=== PATIENT | male | born 1955 | race Caucasian/White ===

== ENCOUNTER 2017-04-11 10:59 | Emergency (ER) | payer BC, MEDICARE ==
[~2017-04-11] VITALS: Ht 177.8 cm; Wt 79.5 kg
[2017-04-11] MEDS ORDERED: TRAZ50TA11 (11:13)
[2017-04-11] MEDS ORDERED: RANI150T (11:13)
[2017-04-11] MEDS ORDERED: AMLO5TAB2 (11:13)
[2017-04-11] MEDS ORDERED: MELO15TA4 (11:13)
[2017-04-11] MEDS ORDERED: HYDR-3363 (11:13)
[2017-04-11] MEDS ORDERED: HYDR-3719 (11:13)
--- NOTE | 2017-04-11 11:48 | REP ---
RIGHT FIRST DIGIT: Three views of the right first digit are performed. There is amputation of the tip of the first digit as well as of the distal end of the first distal phalanx. There are tiny adjacent radiopaque foreign bodies in the soft tissues as well as a small linear osseous fragment. Signed by Steve Valdez MD 04/11/2017 02:23 P
[2017-04-11] MEDS: LIDOCAINE 2% MDV 20 ML VIAL SC ONE (12:00)
[2017-04-11] MEDS ORDERED: PERC5TAB12 PO (12:53)
[2017-04-11] MEDS ORDERED: KEFL500C17 PO (12:53)
--- NOTE | 2017-04-11 13:09 | ER ---
DATE OF CONSULTATION: 04/11/2017 CHIEF COMPLAINT: Right thumb partial amputation using some sort of a grinding wheel. HISTORY: This is a 61-year-old gentleman who is disabled right now, left hand dominant, who injured his right thumb when he got it caught between the grinding wheel and a pipe and he amputated the end of his thumb through about the mid portion of his distal phalanx in terms of the soft tissue and there is exposed bone. Up to date on tetanus. Antibiotics are being given. He denies any other injury. His medications at home include hydrocodone, amlodipine, Zantac, trazodone, and meloxicam. He has no known drug allergies. PAST MEDICAL HISTORY: Notable for previous appendix surgery, prostate surgery, previous history of hypertension, gastrointestinal disorders including reflux. He has history of back pain. He denies any history of psychiatric problems. Up to date on immunizations he reports and up to date on tetanus. PHYSICAL EXAMINATION: He is alert, oriented, in no acute distress. HEENT: Extraocular muscles intact. He has regular rate and rhythm. No irritability to range of motion of his neck. He has nonlabored breathing. He has intact pulses. Abdomen appears benign. He has isolated injury to his right thumb where he has an oblique type soft tissue amputation that starts on the palmar side close to the flexion crease at the IP joint and extends distally and dorsally out through the proximal nail. There is exposed distal phalanx that protrudes out. It is an oblique, somewhat grossly contaminated and very irregular wound that one would expect from a grinding wheel. There is mild bleeding present. He brought in a piece of macerated tissue from the grinding wheel and his family member indicated there is still more in the wheel. X-rays were reviewed and they demonstrate a partial amputation of his distal phalanx and significant soft tissue loss involving mostly the palmar surface of his thumb and exiting out through his nail and the nail is avulsed. IMPRESSION: Severe injury to his right thumb. I explained to he and his family members the options and I have explained that the only reasonable thing to do is to try to get soft tissue coverage over the end of the bone. She wondered if there would be any role to attach this macerated piece of tissue and I explained that that would not typically be successful and is not something we would advise. The tissue is nonviable and is extremely macerated. I explained the goal is to get good soft tissue coverage over the bone to allow healing of the soft tissues and to try to remove the nail. He wished to go ahead with this. He understood the nature of this and the risks of bleeding, infection, damage to nerves and vessels, persistent pain, sensitivity, problems with recurrent nail growth, need for further surgery down the road, cold intolerance among others. Under sterile conditions, I injected some 1% plain lidocaine in the proximal palm. I prepped and draped the hand in the usual sterile fashion. Then, used a small dissecting scissors to dissect around the exposed portion of the distal phalanx. I then used a rongeur to gradually nibble this back so that I removed some of the bone to allow for soft tissue coverage. He was missing much of the skin on the palmar side of the thumb, but this I think will gradually heal in. I then elevated the skin above the nail matrix, made a small incision on the corners of either side, elevated this up, and used a rongeur to remove the nail matrix. Once enough of the bone had been removed that I could bring soft tissue around, I was able to proceed with that. There was still a flap of tissue along the ulnar side of the distal thumb that I was able to bring over the end and then I used #4-0 nylon suture and a total of 4 stitches to bring the soft tissue over the bone. I had irrigated multiple times. The soft tissue appeared to be clean when I was done with this. Sterile dressing was applied. I placed a nonadherent dressing with some antibiotic ointment to hopefully allow for easier dressing change and a quad splint was placed over the end of the thumb to protect it. RECOMMENDATIONS: 1. IV antibiotics that are being given now. 2. Ice, elevate. 3. Keflex 500 four times a day for 7 days. 4. Pain medication. 5. Follow up in the orthopedic office in 3-4 days for a recheck. He knows to call or return if he has increasing pain, fevers, chills, reinjury, among others. Will likely remove the sutures in a couple of weeks.
[2017-04-11 13:29] VITALS: BP 180/108
== END 2017-04-11 13:31 | disposition home or self-care (01) ==
LOC: M ED 10:59
DX: S68.021A Partial traumatic metacarpophalangeal amputation of right thumb, initial encounter (principal); W29.8XXA Contact with other powered hand tools and household machinery, initial encounter; Y92.018 Other place in single-family (private) house as the place of occurrence of the external cause; Y93.89 Activity, other specified; Y99.8 Other external cause status; G89.29 Other chronic pain; Z79.899 Other long term (current) drug therapy; F17.210 Nicotine dependence, cigarettes, uncomplicated
CPT/HCPCS: 12031; 26951; 73140; 99283; J0690

== ENCOUNTER → 2019-10-14 | Outpatient (CLI) | payer MEDICARE ==
[~2019-10-14] MED LIST: AMLO5TAB6; HYDR-3363; HYDR-3719; KEFL500C17 PO; MELO15TA28; PERC5TAB12 PO; RANI150T; TRAZ-252
[2019-10-14 11:16] LABS: BLOOD UREA NITROGEN 9 MG/DL (7-18); CREATININE FOR GFR 0.84 MG/DL (0.70-1.30); GLOMERULAR FILTRATION RATE > 60.0 (>49)
== END ==
LOC: M LAB 10:14
PROVIDERS: ATTEND Otolaryngology
DX: J02.9 Acute pharyngitis, unspecified (principal)

== ENCOUNTER → 2019-10-15 | Outpatient (CLI) | payer MEDICARE ==
[~2019-10-15] MED LIST changes: +ISOVUE-370 76% 100ML VIAL (Q9967) As Ordered ONE
--- NOTE | 2019-10-15 15:08 | REP ---
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 CT CONTRAST DOSE: 75 mL of intravenous Isovue 370. CT FINDINGS: Preliminary [facility] nursing home images are unremarkable. No pulmonary mass or nodule is seen in the lung apices. There is some vascular calcification noted in the great vessels. The cervical segments of the internal carotid arteries are tortuous approaching one another in the retropharyngeal soft tissues near the midline. Thyroid lobes are normal and symmetric. Submandibular and parotid glands are normal in size and homogeneous in texture. There are is a solitary tonsillar crypt calcification on the left. The tonsillar and peritonsillar soft tissues are unremarkable. The adenoidal soft tissues do not appear enlarged. Nasopharynx and nasal cavity appear intact. There is a rightward beak in the nasal septum. The epiglottis is unremarkable. No supraglottic or subglottic airway lesion is appreciated. There is no evidence of mass or adenopathy. IMPRESSION: No evidence of neck mass or adenopathy. Tonsillar soft tissues are unremarkable. The internal carotid arteries are quite tortuous in and approach one another in the midline retropharyngeal region. Electronically Signed by Maldonado Tafoya MD 10/15/2019 05:42 P
== END ==
LOC: M RAD 12:29
PROVIDERS: ATTEND Otolaryngology
DX: J35.8 Other chronic diseases of tonsils and adenoids (principal)
CPT/HCPCS: 70491; Q9967

== ENCOUNTER → 2020-09-13 | Outpatient (CLI) | payer MEDICARE ==
[~2020-09-13] MED LIST changes: +AMLO1TAB24; -AMLO5TAB6; -ISOVUE-370 76% 100ML VIAL (Q9967) As Ordered ONE; +ISOVUE-370 76% 100ML VIAL As Ordered ONE
--- NOTE | 2020-09-13 09:20 | REPVR ---
PROCEDURE INFORMATION: Exam: CT Neck With Contrast Exam date and time: 09/13/2020 8:59 AM Age: 65 years old Clinical indication: Throat pain; Additional info: Pain in throat TECHNIQUE: Imaging protocol: Computed tomography images of the neck with intravenous contrast. Radiation optimization: All CT scans at this facility use at least one of these dose optimization techniques: automated exposure control; mA and/or kV adjustment per patient size (includes targeted exams where dose is matched to clinical indication); or iterative reconstruction. Contrast material: ISOVUE 370; Contrast volume: 75 ml; Contrast route: INTRAVENOUS (IV); COMPARISON: CT Neck with contrast 10/15/2019 12:56 PM FINDINGS: Nasopharynx: Unremarkable. Oropharynx: Unremarkable. No significant tonsillar enlargement. Hypopharynx: Unremarkable. Larynx: Unremarkable. Normal epiglottis. Retropharyngeal space: Unremarkable. Submandibular/Parotid glands: Normal. Glands are normal in size. Thyroid: Normal. No enlarged or calcified nodules. Lymph nodes: Unremarkable. No lymphadenopathy. Vasculature: The internal carotid arteries are tortuous and coarse medially posterior to the oropharynx. Trachea: Visualized trachea is unremarkable. Lungs: Unremarkable as visualized. Bones/joints: There is straightening of the normal cervical lordosis. No acute fracture. Soft tissues: Unremarkable. No significant soft tissue swelling. IMPRESSION: No acute findings. Electronically signed by: Carrie Bates On 09/13/2020 09:21:11 AM
== END ==
LOC: M RAD 08:38
PROVIDERS: ATTEND Physician Assistant Medical
DX: R07.0 Pain in throat (principal)
CPT/HCPCS: 70491; Q9967

== ENCOUNTER → 2021-06-25 | Outpatient (CLI) | payer MEDICARE ==
[~2021-06-25] MED LIST changes: -ISOVUE-370 76% 100ML VIAL As Ordered ONE
--- NOTE | 2021-06-25 10:17 | REP ---
INDICATION: SMOKER. COMPARISON: 10/24/2017. TECHNIQUE: Low dose screening CT chest performed without the use of intravenous contrast. FINDINGS: Lungs: There is a stable oval 7 mm there is a stable 7 mm nodular density in the right lower lobe. Nodular density in the right middle lobe. Scattered interstitial fibrotic changes bilaterally appear relatively stable. There is mild bronchiectasis in the lower lobes. There is an oval soft tissue opacity in the right mainstem bronchus posteriorly of the diameter is slightly greater than 1 cm, a width approximately 5 mm. Heart: Not enlarged. Thoracic aorta: No aneurysm. Visualized osseous structures: There are degenerative changes of the spine. IMPRESSION: Category 4A screening lung CT. Oval soft tissue opacity in the right mainstem bronchus posteriorly measures about 11 x 5 mm. I suspect this represents retained mucus. Recommend follow-up CT in 3 months. <Electronically signed by Steve Valdez > 06/25/21 [id number]
== END ==
LOC: M RAD 09:22
PROVIDERS: ATTEND Family Medicine
DX: Z87.891 Personal history of nicotine dependence (principal); R91.8 Other nonspecific abnormal finding of lung field

== ENCOUNTER → 2021-08-31 | Outpatient (CLI) | payer MEDICARE ==
[~2021-08-31] MED LIST changes: -AMLO1TAB24; +AMLO1TAB24 PO; +PANT40TA29 PO; +TRAZ-252 PO
== END ==
LOC: M LABSMTC 09:45
PROVIDERS: ATTEND Anesthesiology
DX: Z01.812 Encounter for preprocedural laboratory examination (principal); Z20.822 Contact with and (suspected) exposure to COVID-19

== ENCOUNTER 2021-09-05 08:08 | Day surgery (SDC) | payer MEDICARE ==
[~2021-09-05] VITALS: Ht 177.8 cm; Wt 97.4 kg
[~2021-09-05 08:08] MED LIST changes: +NS 1,000 ML IV ONE
[2021-09-05] MEDS ORDERED: propofoL 200 MG/20 ML VIAL As Ordered ONE ×2 (09:36→09:47)
[2021-09-05] MEDS ORDERED: LIDOCAINE 2% MDV 20ML VIAL As Ordered ONE (09:36)
[2021-09-05] MEDS ORDERED: fentaNYL 100 MCG/2 ML INJECTION As Ordered ONE (09:37)
[2021-09-05 10:17] VITALS: BP 155/81
== END 2021-09-05 10:07 | disposition home or self-care (01) ==
LOC: M OPP 08:08
PROVIDERS: ATTEND Internal Medicine Gastroenterology
DX: Z12.11 Encounter for screening for malignant neoplasm of colon (principal); K57.30 Diverticulosis of large intestine without perforation or abscess without bleeding; K64.0 First degree hemorrhoids; K44.9 Diaphragmatic hernia without obstruction or gangrene; R12 Heartburn; J02.9 Acute pharyngitis, unspecified; Z79.899 Other long term (current) drug therapy; Z87.891 Personal history of nicotine dependence; Z85.46 Personal history of malignant neoplasm of prostate
CPT/HCPCS: 43239; 88305; G0121; J3010

== ENCOUNTER → 2021-09-25 | Outpatient (CLI) | payer MEDICARE ==
[~2021-09-25] MED LIST changes: -NS 1,000 ML IV ONE
== END ==
LOC: M RAD 13:05
PROVIDERS: ATTEND Family Medicine
DX: R91.1 Solitary pulmonary nodule (principal)

== ENCOUNTER → 2021-09-25 | Outpatient (CLI) | payer MEDICARE ==
[~2021-09-25] MED LIST changes: +ISOVUE-370 76% 100ML VIAL As Ordered ONE
== END ==
LOC: M RAD 13:08
PROVIDERS: ATTEND Otolaryngology
DX: R07.0 Pain in throat (principal); R91.1 Solitary pulmonary nodule
CPT/HCPCS: 70491; 71260; Q9967

== ENCOUNTER → 2023-08-05 | Outpatient (REF) | payer MEDICARE ==
[~2023-08-05] MED LIST changes: -ISOVUE-370 76% 100ML VIAL As Ordered ONE
== END ==
LOC: M LAB REF 13:18
PROVIDERS: ATTEND Family Medicine
DX: G60.9 Hereditary and idiopathic neuropathy, unspecified (principal)

== ENCOUNTER → 2023-09-08 | Outpatient (CLI) | payer MEDICARE | LOC: M WUC 14:53 | PROVIDERS: ATTEND Physician Assistant Medical | DX: M79.674 Pain in right toe(s) (principal); G60.9 Hereditary and idiopathic neuropathy, unspecified ==

== ENCOUNTER → 2023-09-08 | Outpatient (REF) | payer MEDICARE | LOC: M LAB REF 16:27 | PROVIDERS: ATTEND Physician Assistant Medical | DX: M79.674 Pain in right toe(s) (principal); G60.9 Hereditary and idiopathic neuropathy, unspecified ==

== ENCOUNTER → 2023-09-19 | Outpatient (CLI) | payer MEDICARE | LOC: M WUC 15:37 | PROVIDERS: ATTEND Family Medicine | DX: M79.671 Pain in right foot (principal); M47.816 Spondylosis without myelopathy or radiculopathy, lumbar region; M46.96 Unspecified inflammatory spondylopathy, lumbar region ==

== ENCOUNTER → 2024-02-20 | Outpatient (CLI) | payer MEDICARE ==
[~2024-02-20] MED LIST changes: +ISOVUE-370 76% 100ML VIAL As Ordered ONE
== END ==
LOC: M RAD 09:53
PROVIDERS: ATTEND Family Medicine
DX: R91.1 Solitary pulmonary nodule (principal)
CPT/HCPCS: 71260; Q9967

== ENCOUNTER → 2025-06-13 | Outpatient (CLI) | payer MEDICARE ==
[~2025-06-13] MED LIST changes: +ISOVUE-370 76% 100 ML VIAL ONE; -ISOVUE-370 76% 100ML VIAL As Ordered ONE
== END ==
LOC: M PLAIMG 10:12
PROVIDERS: ATTEND Family Medicine
DX: R91.1 Solitary pulmonary nodule (principal)
CPT/HCPCS: 71260; Q9967